=== PATIENT | female | born 1965 | race Caucasian/White ===

== ENCOUNTER 2016-11-05 18:19 | Emergency (ER) | payer OTHER ==
[~2016-11-05] VITALS: Ht 147.3 cm; Wt 75.5 kg
[~2016-11-05 18:19] MED LIST: DENIES
[2016-11-05 18:24] VITALS: Ht 147.3 cm; Wt 75.5 kg
[2016-11-05] MEDS ORDERED: ACETAMINOPHEN 500 MG TAB PO STA (19:12)
[2016-11-05 19:24] LABS: URINE BLOOD (Dip) POC Trace-intact (NEGATIVE)
--- NOTE | 2016-11-05 19:58 | ERD ---
ER Documentation Chief Complaint Date/Time DATE: 11/05/16 TIME: 19:56 Chief Complaint GRIMALDO/ n/v x 2 days, pain in L 4th finger r/t previous fall x 5 days HPI Patient is a 51-year-old female who presents the ED with left finger and wrist pain, right knee pain after sustaining a following week ago. She states that she tripped and fell forward. She denies hitting her head, blacking out or losing consciousness. She states that she went to another ER 1 week ago and was given Augmentin, ibuprofen and [place]. She states that she has been taking [place] every day for the last week. However she states that she has had headaches every single day for the last week. She has a history of migraines but states that this headache is different than before. She also complains of nausea and vomiting that started today. She denies fever or chills. She denies abdominal pain, constipation or diarrhea. She denies chest pain, cough, shortness of breath or difficulty breathing. Denies leg pain or swelling or recent travel or recent surgeries. ROS All systems reviewed and are negative except as per history of present illness. Medications Home Meds Active Scripts Ondansetron Hcl* (Zofran*) 4 Mg Tablet, 4 MG PO Q6H for NAUSEA AND/OR VOMITING, #30 TAB Prov:NATHALY GUERRERO PA-C 11/05/16 Reported Medications [Denies] No Conflict Check 02/10/10 Allergies Allergies: Coded Allergies: No Known Allergies (Verified Allergy, Mild, 02/10/10) PMhx/Soc Medical and Surgical Hx: pt denies Medical Hx History of Surgery: Yes (gb and c section) Anesthesia Reaction: No Hx Neurological Disorder: No Hx Respiratory Disorders: No Hx Cardiac Disorders: No Hx Psychiatric Problems: No Hx Miscellaneous Medical Probl: No Hx Alcohol Use: No Hx Substance Use: No Hx Tobacco Use: No FmHx Family History: No coronary disease, No diabetes, No other Physical Exam Vitals Vital Signs Date Time Temp Pulse Resp B/P Pulse Ox O2 Delivery O2 Flow Rate FiO2 11/05/16 22:08 98.0 11/05/16 18:24 102.5 82 19 133/72 98 Physical Exam GENERAL: Well-developed, well-nourished female. Appears in no acute distress. HEAD: Normocephalic, atraumatic. EYES: Pupils are equally reactive bilaterally. EOMs grossly intact. No conjunctival erythema. ENT: Moist mucous membranes. No uvula deviation. No kissing tonsils. No exudates. NECK: Supple. No lymphadenopathy or thyromegaly. No meningismus. negative kernig. negative brudinski. LUNG: Clear to auscultation bilaterally. No rhonchi, wheezing, rales or coarse breath sounds. HEART: Regular rate and rhythm. No murmurs, rubs or gallops. Extremities: Equal pulses bilaterally. No peripheral clubbing, cyanosis or edema. No unilateral leg swelling. NEUROLOGIC: Alert and oriented. Moving all four extremities. 5/5 strength in all extremities. Normal speech. Steady gait. Cranial nerves II through XII intact SKIN: Normal color. Warm and dry. No rashes or lesions. Capillary refill < 2 seconds Results 24 hrs Laboratory Tests Test 11/05/16 19:25 Bedside Urine Blood Trace-intact Bedside Urine Glucose (UA) Negative Bedside Urine Ketones (LAB) Negative Bedside Urine Leukocyte Esterase (L Negative Bedside Urine Nitrite (LAB) Negative Bedside Urine Protein (LAB) Negative Bedside Urine pH (LAB) 5.5 Current Medications Medications (Trade) Dose Ordered Sig/Paige Route PRN Reason Start Time Stop Time Status Last Admin Dose Admin Acetaminophen (Tylenol Tab) 1,000 mg ONCE STAT PO 11/05/16 19:12 11/05/16 19:13 11/05/16 19:23 Procedures/MDM ER COURSE: I kept the patient and/or family informed of laboratory and diagnostic imaging results throughout the emergency room course. EKG, MONITORS, & DIAGNOSTIC IMAGING: [place] [id number] Radiology Main Line: [phone] DIAGNOSTIC IMAGING REPORT Patient: GONSALO LOGAN : 1965 Age: 51 Sex: F MR #: [id number] DOS: 11/05/161911 Ordering MD: NATHALY GUERRERO PA-C Location: [facility] Room/Bed: PROCEDURE: CT Head without. CLINICAL INDICATION: Headache, dizziness. TECHNIQUE: The study was performed utilizing a multi-slice, multidetector CT scanner. Direct spiral 1 mm axial sections were obtained through the head without the use of intravenous contrast material. Coronal and sagittal reformations were obtained. The images were reviewed on a PACS workstation. RADIATION DOSE: CTDIvol: 44.0 mGy DLP: 720.2 mGy-cm COMPARISON: No prior studies are available for comparison. FINDINGS: There is no intracranial hemorrhage, extra-axial fluid collection, mass lesion, midline shift or hydrocephalus. The ventricles, sulci and cisterns are within normal limits. The white matter is unremarkable. The mcginnis-white matter differentiation is preserved. The basal cisterns are patent. The midline structures are intact. The orbits, calvarium and extracranial soft tissues are normal in appearance. The visualized paranasal sinuses, mastoid air cells and middle ear cavities are normally aerated. IMPRESSION: 1. No acute intracranial abnormality. No intracranial hemorrhage, extra-axial fluid collection, mass lesion or hydrocephalous. RPTAT: HGAS .Gianfranco Martinez MD, MD Date Time Electronically viewed and signed by .Gianfranco Martinez MD, MD on 11/05/2016 20: 59 .S/ CC: NATHALY GUERRERO PA-C PROCEDURES: ED wrist splint, finger splint and marifer tape, right knee Ramírez wrap. Splint Assessment: Neurovascularly intact post splint placement with good fit. MEDICATIONS: Tylenol 1 g. Tolerated medication well with no adverse reaction. Seen improvement in symptoms. Temperature is down trending LAB INTERPRETATION: Urine test was negative. MEDICAL DECISION MAKING: This is a 51-year-old female who presents with headache, nausea, vomiting and left wrist and finger and right knee pain. Vital signs were reviewed. Patient had a low-grade fever here in the ED. After administration of Tylenol, temperature is down trending and is now 98. Patient is not hypoxic. Patient is not toxic or ill-appearing. Her bone x-rays as read by radiologist were unremarkable. Patient likely has a wrist sprain and a finger sprain as well as knee pain of uncertain etiology. This is all likely related to her fall. Low suspicion for dislocation, fracture, septic joint, compartment syndrome, osteomyelitis, cellulitis, avascular necrosis, neurological injury, vascular injury, tendon laceration. Her headache is of uncertain etiology. Since this was a different type of headache and she had accompanying nausea and vomiting a CT scan was ordered a CT scan was ordered and was unremarkable as read by radiologist. Low suspicion for intracranial hemorrhage, meningitis, intracranial mass, concussion, temporal arteritis, stroke, elevated intracranial pressure, seizure. Patient also has likely a URI of viral etiology. Low suspicion for pneumonia, PE, pneumothorax, ACS, epiglottitis, obstruction, TB, pertussis, meningitis, sepsis. DISCHARGE: At this time, patient is stable for discharge and outpatient management with no new complaints during the ER course. Patient was sent home with Zofran for nausea. Patient will be discharged home with instructions to recheck for new or worsening symptoms such as fever, nausea, weakness, LOC and to follow up with primary care in the next 1-2 days. Patient was advised to return to the ER for any new or worsening symptoms. Plan was discussed and patient and/or family understands and agrees. Home instructions were given. Departure Diagnosis: Primary Impression: Finger sprain Encounter type: initial encounter Qualified Code: S63.619A - Finger sprain, initial encounter Additional Impressions: URI, acute Wrist sprain Encounter type: sequela Laterality: left Qualified Code: S63.502S - Wrist sprain, left, sequela Condition: Stable NATHALY GUERRERO PA-C Nov 05, 2016 19:58
--- NOTE | 2016-11-05 21:00 | RADRPT ---
PROCEDURE: CT Head without. CLINICAL INDICATION: Headache, dizziness. TECHNIQUE: The study was performed utilizing a multi-slice, multidetector CT scanner. Direct spira l 1 mm axial sections were obtained through the head without the use of intravenous contrast materia l. Coronal and sagittal reformations were obtained. The images were reviewed on a PACS workstation. RADIATION DOSE: CTDIvol: 44.0 mGyDLP: 720.2 mGy-cm COMPARISON: No prior studies are available for comparison. FINDINGS: There is no intracranial hemorrhage, extra-axial fluid collection, mass lesion, midline shift or hyd rocephalus. The ventricles, sulci and cisterns are within normal limits. The white matter is unrem arkable. The mcginnis-white matter differentiation is preserved. The basal cisterns are patent. The m idline structures are intact. The orbits, calvarium and extracranial soft tissues are normal in mora earance. The visualized paranasal sinuses, mastoid air cells and middle ear cavities are normally ae rated. IMPRESSION: 1. No acute intracranial abnormality. No intracranial hemorrhage, extra-axial fluid collection, ma ss lesion or hydrocephalous. RPTAT: HGAS .Gianfranco Martinez MD, Date Time Electronically viewed and signed by .Gianfranco Martinez MD, on 11/05/2016 20:59 .S/
--- NOTE | 2016-11-05 21:29 | RADRPT ---
PROCEDURE: XR hand. CLINICAL INDICATION: Trauma TECHNIQUE: AP, lateral views of the left hand was obtained. COMPARISON: There are no similar studies submitted for comparison. FINDINGS: There is normal bone mineralization. There is no acute fracture or dislocation. No osseous erosions are identified. The joint spaces are within normal limits. There is no soft tissue swelling. IMPRESSION: No acute fracture or dislocation. RPTAT: HIKT .Magdy Vital MD, MD Date Time Electronically viewed and signed by .Magdy Vital MD, MD on 11/05/2016 21:29 .T/
--- NOTE | 2016-11-05 21:36 | RADRPT ---
PROCEDURE: XR Left Wrist. CLINICAL INDICATION: Pain TECHNIQUE: Four AP, lateral and oblique views of the left wrist were performed. COMPARISON: No prior studies are available for comparison. FINDINGS: No acute fracture is identified. Joint relationships are maintained. Bone mineralization is within normal limits. Soft tissues are unremarkable. IMPRESSION: 1. No acute abnormality. RPTAT: HMVK .Floerntino Stevens MD, Date Time Electronically viewed and signed by .Florentino Stevens MD, on 11/05/2016 21:36 .K/
--- NOTE | 2016-11-05 21:39 | RADRPT ---
PROCEDURE: XR Knee. CLINICAL INDICATION: Pain TECHNIQUE: Three views of the right knee are available for review. COMPARISON: None available FINDINGS: There is no fracture. Joint relationships are maintained. Bone mineralization is within normal guerra its. Soft tissues are unremarkable. IMPRESSION: 1. Unremarkable right knee x-ray series. 2. No acute fracture or dislocation is seen. RPTAT: HMVK .Florentino Stevens MD, Date Time Electronically viewed and signed by .Florentino Stevens MD, on 11/05/2016 21:39 .K/
[2016-11-05] MEDS ORDERED: ONDA4TAB8 PO (21:51)
[2016-11-05 22:08] VITALS: TEMP 98
== END 2016-11-05 22:35 | disposition home or self-care (01) ==
LOC: FTE 18:19
DX: S63.619A Unspecified sprain of unspecified finger, initial encounter (principal); J06.9 Acute upper respiratory infection, unspecified; S63.502S Unspecified sprain of left wrist, sequela; R11.2 Nausea with vomiting, unspecified; R51 Headache; W01.0XXA Fall on same level from slipping, tripping and stumbling without subsequent striking against object, initial encounter; Y92.9 Unspecified place or not applicable
CPT/HCPCS: 29125; 70450; 73110; 73130; 73562; 81003; Z7502; Z7610

== ENCOUNTER 2017-01-25 19:13 | Emergency (ER) | payer OTHER ==
[~2017-01-25] VITALS: Ht 157.5 cm; Wt 75.0 kg
[~2017-01-25 19:13] MED LIST changes: +ONDA4TAB8 PO
[2017-01-25 19:23] VITALS: Ht 157.5 cm; Wt 75.0 kg
[2017-01-25] MEDS ORDERED: NAPROXEN 500 MG TAB PO ONE (22:00)
--- NOTE | 2017-01-25 22:22 | ERD ---
ER Documentation Chief Complaint Date/Time DATE: 01/25/17 TIME: 22:16 Chief Complaint sp trip and fall, right ankle pain/ swelling HPI This pleasant 51-year-old female presents to emergency department today for mechanical trip and fall yesterday. Patient reports she was walking on uneven pavement and tripped in a shallow concrete hole. Patient reports that she rolled her right ankle. Obtain no other injuries, denies hitting her head, loss of consciousness, hitting her back or knee or her shoulder. Patient reports she treated herself at home with Motrin and ice, reports pain is still 8 /10 with ambulating, she has increased swelling, denies numbness or tingling to her feet. ROS All systems reviewed and are negative except as per history of present illness. Medications Home Meds Active Scripts Ibuprofen* (Motrin*) 400 Mg Tab, 400 MG PO Q6, #30 TAB Prov:ALDOALEX 01/25/17 Ondansetron Hcl* (Zofran*) 4 Mg Tablet, 4 MG PO Q6H for NAUSEA AND/OR VOMITING, #30 TAB Prov:NATHALY GUERRERO PA-C 11/05/16 Reported Medications [Denies] No Conflict Check 02/10/10 Allergies Allergies: Coded Allergies: No Known Allergies (Verified Allergy, Mild, 01/25/17) PMhx/Soc History of Surgery: Yes (gb and c section) Anesthesia Reaction: No Hx Neurological Disorder: No Hx Respiratory Disorders: No Hx Cardiac Disorders: No Hx Psychiatric Problems: No Hx Miscellaneous Medical Probl: No Hx Alcohol Use: No Hx Substance Use: No Hx Tobacco Use: No Smoking Status: Never smoker Physical Exam Vitals Vitals stable, and triage notes reviewed Physical Exam Const: No acute distress Head: Atraumatic Eyes: Normal Conjunctiva, PERRLA, EOMI ENT: Normal External Ears, Nose and Mouth. Mucous membranes moist Neck: Full range of motion. With rotation lateral bending flexion and extension Resp: No chest wall tenderness Cardio: Abd: Skin: Back: Ext: Lower Extremity -right ankle: Skin: No laceration Compartments: Soft, localized edema lateral malleolus Motor: Decreased range of motion of ankle, full range of motion of the foot, knee, hip. Sensation: Intact to light touch anterior posterior and lateral surfaces. Bones: Tender to palpation lateral malleolus Joints: No effusion or laxity Pulses/Perfusion: 2+ DP, Capillary refill < 2 seconds Neur: Awake and alert Psych: Normal Mood and Affect Results 24 hrs Current Medications Medications (Trade) Dose Ordered Sig/Paige Route PRN Reason Start Time Stop Time Status Last Admin Dose Admin Naproxen (Naprosyn) 500 mg ONCE ONCE PO 01/25/17 22:00 01/25/17 22:01 DC 01/25/17 22:00 Ibuprofen (Motrin) 400 mg ONCE ONCE PO 01/26/17 00:00 01/26/17 00:14 DC Procedures/MDM ROCEDURE: XR Right Ankle. CLINICAL INDICATION: Injury. Pain. TECHNIQUE: Three views of the right ankle were performed. COMPARISON: None. FINDINGS: There is lateral malleolar subcutaneous soft tissue swelling. There is no underlying fracture. Joint relationships are maintained. Ankle mortise is intact. Bone mineralization is within normal limits. IMPRESSION: Lateral malleolar subcutaneous soft tissue swelling without underlying fracture. .Florentino Stevens MD, MD Date Time Electronically viewed and signed by .Florentino Stevens MD, MD on 01/25/2017 23:15 This pleasant 51-year-old female presents to emergency department with 1 day history of ankle pain after injury. Patient had mechanical trip and fall on pavement yesterday treated conservatively ice and Motrin. Patient continues to have pain with ambulation and swelling. Low suspicion for fracture x-ray was obtained regardless. Findings present as lateral malleolar subcutaneous soft tissue swelling there is no underlying fracture. Joint relationships are maintained. Ankle mortise that is intact. Bone mineralization is within normal limits. Patient will be discharged with a Ramírez wrap, Motrin, instructed to continue rice therapy, return to emergency department for worsening pain, swelling, numbness or tingling to foot. I feel the patient is stable for discharge and outpatient management by primary care physician I have discussed results, examination findings, the treatment plan with the patient and family present prior to discharge. Indications for emergent reevaluation, side effects of medication were also discussed. All questions were answered. Patient verbalizes understanding and agrees with plan of care. Departure Diagnosis: Primary Impression: Ankle sprain Encounter type: initial encounter Involved ligament of ankle: unspecified ligament Laterality: right Qualified Code: S93.401A - Sprain of right ankle , unspecified ligament, initial encounter Condition: Fair Patient Instructions: Self-Care for Strains and Sprains Additional Instructions: Thank you for for coming to [facility] for your care today. Please ask your nurse or provider if you have questions about your care today and do not leave until all your questions have been answered. Please use any medications given as directed and follow-up with your doctor (or the doctor you were referred to) in the next 2-3 days. If you do not have a primary care doctor you may [place] [facility] [place]). You may also use motrin and tylenol as needed for fever and/or pain unless instructed otherwise by your provider or nurse. Indications for more urgent follow-up have been discussed, but you may return to the Emergency Department at ANY time for any worrisome or worsening symptoms. If you have abdominal pain, please know that no test or exam you received is perfect and you should follow up within 8 hours for continued pain. If you had any imaging studies today, such as an X-Ray or CT Scan, these studies will be reviewed later by a radiologist. You will be called if there are important findings that were not identified today, so make sure the contact information you provided at registration is correct. If you received any narcotic pain control medicine today, such as Vicodin, Morphine or Dilaudid, your coordination and judgment may be affected for a number of hours. Please do not drive or operate heavy machinery, and you may want someone to assist you at home. If you were given a prescription for narcotic medication, be aware that it is very addictive- use sparingly and only if necessary. ALEX CARLSON January 25, 2017 22:22 ALEX CARLSON January 25, 2017 22:22
--- NOTE | 2017-01-25 23:16 | RADRPT ---
PROCEDURE: XR Right Ankle. CLINICAL INDICATION: Injury. Pain. TECHNIQUE: Three views of the right ankle were performed. COMPARISON: None. FINDINGS: There is lateral malleolar subcutaneous soft tissue swelling. There is no underlying fracture. Miriam nt relationships are maintained. Ankle mortise is intact. Bone mineralization is within normal guerra its. IMPRESSION: Lateral malleolar subcutaneous soft tissue swelling without underlying fracture. RPTAT: HMVK .Folrentino Stevens MD, MD Date Time Electronically viewed and signed by .Florentino Stevens MD, on 01/25/2017 23:15 .K/
[2017-01-25] MEDS ORDERED: IBUP400T22 PO (23:47)
[2017-01-26] MEDS ORDERED: IBUPROFEN 200 MG TAB PO ONE
== END 2017-01-26 00:23 | disposition home or self-care (01) ==
LOC: FTE 19:13
DX: S93.401A Sprain of unspecified ligament of right ankle, initial encounter (principal); W01.0XXA Fall on same level from slipping, tripping and stumbling without subsequent striking against object, initial encounter; Y92.9 Unspecified place or not applicable
CPT/HCPCS: 73610; Z7610

== ENCOUNTER 2017-07-24 15:20 | Emergency (ER) | payer OTHER ==
[~2017-07-24] VITALS: Ht 157.5 cm; Wt 76.0 kg
[~2017-07-24 15:20] MED LIST changes: +IBUP400T22 PO
[2017-07-24 15:27] VITALS: Ht 157.5 cm; Wt 76.0 kg
[2017-07-24] MEDS ORDERED: ONDANSETRON 4 MG INJ IV STA (16:42)
[2017-07-24] MEDS ORDERED: FAMOTIDINE 20 MG INJ IV STA (16:42)
[2017-07-24] MEDS ORDERED: ACETAMINOPHEN 325 MG TAB PO ONE (17:00)
[2017-07-24] MEDS ORDERED: KETOROLAC 30 MG INJ IV STA (18:31)
[2017-07-24] MEDS ORDERED: RANI150T9 PO (19:14)
[2017-07-24] MEDS ORDERED: ONDA4TAB14 PO (19:14)
[2017-07-24] MEDS ORDERED: ACET500C5 PO (19:14)
[2017-07-24 19:33] VITALS: BP 112/68; PULSE 88; RESP 16; TEMP 98.9
--- NOTE | 2017-07-25 00:31 | ERD ---
ER Documentation Chief Complaint Chief Complaint vomiting and diarrhea x 3 days HPI 52-year-old female patient with no significant past medical history presents to the ED complaining of abdominal pain that started last night. Patient had a few episodes of nonbilious nonbloody vomiting as well as headache. States that she also has a few episodes of non-mucoid nonbloody diarrhea. Denies any chest pain, shortness of breath, fever, chills, constipation, vaginal discharge, dysuria, urgency, vaginal bleeding, melena, hematemesis, or other emergent conditions. ROS All systems reviewed and are negative except as per history of present illness. Medications Home Meds Active Scripts Acetaminophen* (Tylophen*) 500 Mg Capsule, 1 CAP PO Q6H Y for PAIN AND OR ELEVATED TEMP, #20 CAP Prov:NHI HENRIQUEZ PA-C 07/24/17 Ranitidine Hcl* (Zantac*) 150 Mg Tablet, 150 MG PO BID Y for EPIGASTRIC PAIN, # 30 TAB Prov:NHI HENRIQUEZ PA-C 07/24/17 Ondansetron (Ondansetron Odt) 4 Mg Tab.rapdis, 4 MG PO Q6H Y for NAUSEA AND/OR VOMITING, #10 TAB Prov:NHI HENRIQUEZ PA-C 07/24/17 Ibuprofen* (Motrin*) 400 Mg Tab, 400 MG PO Q6, #30 TAB Prov:ALDOSHEREENALEX 01/25/17 Ondansetron Hcl* (Zofran*) 4 Mg Tablet, 4 MG PO Q6H for NAUSEA AND/OR VOMITING, #30 TAB Prov:NATHALY GUERRERO PA-C 11/05/16 Reported Medications [Denies] No Conflict Check 02/10/10 Allergies Allergies: Coded Allergies: No Known Allergies (Verified Allergy, Mild, 01/25/17) PMhx/Soc History of Surgery: Yes (gb and c section) Anesthesia Reaction: No Hx Neurological Disorder: No Hx Respiratory Disorders: No Hx Cardiac Disorders: No Hx Psychiatric Problems: No Hx Miscellaneous Medical Probl: No Hx Alcohol Use: No Hx Substance Use: No Hx Tobacco Use: No Smoking Status: Never smoker Physical Exam Vitals Vital Signs Date Time Temp Pulse Resp B/P Pulse Ox O2 Delivery O2 Flow Rate FiO2 07/24/17 19:33 98.9 88 16 112/68 98 Room Air 07/24/17 15:27 99.4 92 16 130/68 98 Physical Exam Const: [id number], well-nourished. In no acute distress. Head: Atraumatic, normocephalic Eyes: Normal Conjunctiva without injection. No purulent discharge. PERRLA. EOMI ENT: Normal external ear. Ear canal without erythema. Tympanic membrane pearly mcginnis without effusion or bulging. Nasal canal clear with normal turbinates. Moist oropharynx without tonsillar exudates. Non-erythematous pharynx. Uvula midline. No drooling. No trismus. Neck: No cervical midline tenderness. Full range of motion. No meningismus. No cervical lymphadenopathy. No JVD. Resp: Clear to auscultation bilaterally. No wheezing, rhonchi, rales, or crackles. No accessory muscle use. No retractions. Cardio: Regular rate and rhythm. No murmurs, rubs or gallops. Abd: Soft, slight epigastric tenderness to palpation, non distended. Normal bowel sounds. No palpable masses. No rebound tenderness. No guarding. Negative McBurney's Point. Negative Hannon's Sign. Skin: Normal skin turgor. No petechiae or rashes Back: No midline tenderness. No CVA tenderness. Ext: No cyanosis, or edema. Distal pulses intact bilaterally. Neur: Awake and alert. Normal gait. Normal coordination. Cranial Nerves II- VII intact. Normal finger to nose. Muscle strength 5/5. Sensation intact. Psych: Normal Mood and Affect Results 24 hrs Laboratory Tests Test 07/24/17 17:00 White Blood Count 6.810^3/ul Red Blood Count 4.7310^6/ul Hemoglobin 14.5g/dl Hematocrit 42.6% Mean Corpuscular Volume 90.1fl Mean Corpuscular Hemoglobin 30.7pg Mean Corpuscular Hemoglobin Concent 34.0g/dl Red Cell Distribution Width 13.7% Platelet Count 29640^3/UL Mean Platelet Volume 10.2fl Neutrophils % 76.6% Lymphocytes % 12.6% Monocytes % 9.3% Eosinophils % 0.9% Basophils % 0.3% Nucleated Red Blood Cells % 0.0/100WBC Neutrophils # 5.210^3/ul Lymphocytes # 0.910^3/ul Monocytes # 0.610^3/ul Eosinophils # 0.110^3/ul Basophils # 0.010^3/ul Nucleated Red Blood Cells # 0.010^3/ul Sodium Level 139mmol/L Potassium Level 3.4mmol/L Chloride Level 101mmol/L Carbon Dioxide Level 24mmol/L Anion Gap 17 Blood Urea Nitrogen 17mg/dl Creatinine 0.80mg/dl Glucose Level 119mg/dl Calcium Level 9.1mg/dl Total Bilirubin 0.4mg/dl Direct Bilirubin 0.00mg/dl Indirect Bilirubin 0.4mg/dl Aspartate Amino Transf (AST/SGOT) 37IU/L Alanine Aminotransferase (ALT/SGPT) 54IU/L Alkaline Phosphatase 86IU/L Total Protein 7.8g/dl Albumin 4.9g/dl Globulin 2.90g/dl Albumin/Globulin Ratio 1.68 Lipase 26U/L Current Medications Medications (Trade) Dose Ordered Sig/Paige Route PRN Reason Start Time Stop Time Status Last Admin Dose Admin Ondansetron HCl (Zofran Inj) 4 mg ONCE STAT IV 07/24/17 16:42 07/24/17 16:43 DC 07/24/17 17:39 Famotidine (Pepcid Iv) 20 mg ONCE STAT IV 07/24/17 16:42 07/24/17 16:43 DC 07/24/17 17:39 Acetaminophen (Tylenol Tab) 650 mg ONCE ONCE PO 07/24/17 17:00 07/24/17 17:01 DC 07/24/17 17:39 Ketorolac Tromethamine (Toradol) 30 mg ONCE STAT IV 07/24/17 18:31 07/24/17 18:32 DC 07/24/17 18:47 Procedures/MDM This is a 52-year-old female patient with no significant past medical history presents to the ED nausea, vomiting, diarrhea, abdominal pain. Patient is afebrile and nontoxic-appearing. Patient was further worked up with CBC, CMP, lipase, UA. Patient's pain and symptoms have improved after treatment with 20 mg IV famotidine, Tylenol, Ketorolac. CBC: No leukocytosis. No e/o of systemic infection. No e/o anemia. CMP: No e/o severe acidosis, alkalosis, renal failure, diabetic ketoacidosis, liver disease Lipase within normal limits. Urine: No leukocyte esterase, no nitrites, no hematuria. Urine : negative Patient's symptoms are likely secondary to viral etiology. Low suspicion for ectopic , ovarian torsion, gastritis, GERD, peptic ulcer disease, cholecystitis, choledocholithiasis, cholangitis, pancreatitis, appendicitis, bowel obstruction, ileus, volvulus, nephrolithiasis, pyelonephritis, hepatitis, perforated viscus, diverticulitis, strangulated/incarcerated hernia, DKA, acute abdomen, mesenteric ischemia or other emergent conditions. Discharge medications: Ranitidine, Zofran, Tylenol Follow up with primary care physician in 1-2 days for referral to senior devops engineer. Instructed patient to return to the ED sooner for any worsening symptoms. Patient's questions were answered. Patient understood and agreed with discharge plan. Patient discharged stable. Departure Diagnosis: Primary Impression: Vomiting and diarrhea Condition: Stable Patient Instructions: Self-Care for Vomiting and Diarrhea, Vomiting And Diarrhea, Nonspecific (Adult) Referrals: [facility] YOU HAVE RECEIVED A MEDICAL SCREENING EXAM AND THE RESULTS INDICATE THAT YOU DO NOT HAVE A CONDITION THAT REQUIRES URGENT TREATMENT IN THE EMERGENCY DEPARTMENT. FURTHER EVALUATION AND TREATMENT OF YOUR CONDITION CAN WAIT UNTIL YOU ARE SEEN IN YOUR DOCTORS OFFICE WITHIN THE NEXT 1-2 DAYS. IT IS YOUR RESPONSIBILITY TO MAKE AN APPOINTMENT FOR FOLOW-UP CARE. IF YOU HAVE A PRIMARY DOCTOR --you should call your primary doctor and schedule an appointment IF YOU DO NOT HAVE A PRIMARY DOCTOR YOU CAN CALL OUR PHYSICIAN REFERRAL HOTLINE AT IF YOU CAN NOT AFFORD TO SEE A PHYSICIAN YOU CAN CHOSE FROM THE FOLLOWING [facility] CLINICS [facility] [address] [facility] [address] [facility] [place] [address] [facility] [facility] [address] [facility] [address] [facility]. [facility]. [address] [facility]. [facility] YOU HAVE RECEIVED A MEDICAL SCREENING EXAM AND THE RESULTS INDICATE THAT YOU DO NOT HAVE A CONDITION THAT REQUIRES URGENT TREATMENT IN THE EMERGENCY DEPARTMENT. FURTHER EVALUATION AND TREATMENT OF YOUR CONDITION CAN WAIT UNTIL YOU ARE SEEN IN YOUR DOCTORS OFFICE WITHIN THE NEXT 1-2 DAYS. IT IS YOUR RESPONSIBILITY TO MAKE AN APPOINTMENT FOR FOLOW-UP CARE. IF YOU HAVE A PRIMARY DOCTOR --you should call your primary doctor and schedule and appointment IF YOU DO NOT HAVE A PRIMARY DOCTOR YOU CAN CALL OUR PHYSICIAN REFERRAL HOTLINE AT . IF YOU CAN NOT AFFORD TO SEE A PHYSICIAN YOU CAN CHOSE FROM THE FOLLOWING [facility] INSTITUTIONS: [facility] [address] [place] [address] [facility] [address] [place] [address] [facility] [address] [place] [address] [facility] URGENT CARE/SPECIALTIES Additional Instructions: Call your primary care doctor TOMORROW for an appointment during the next 2-3 days.See the doctor sooner or return here if your condition worsens before your appointment time. NHI HENRIQUEZ PA-C Jul 25, 2017 00:28 NHI HENRIQUEZ PA-C Jul 25, 2017 00:28
--- NOTE | 2017-07-25 00:31 | ERD ---
ER Documentation Chief Complaint Chief Complaint vomiting and diarrhea x 3 days HPI 52-year-old female patient with no significant past medical history presents to the ED complaining of abdominal pain that started last night. Patient had a few episodes of nonbilious nonbloody vomiting as well as headache. States that she also has a few episodes of non-mucoid nonbloody diarrhea. Denies any chest pain, shortness of breath, fever, chills, constipation, vaginal discharge, dysuria, urgency, vaginal bleeding, melena, hematemesis, or other emergent conditions. ROS All systems reviewed and are negative except as per history of present illness. Medications Home Meds Active Scripts Acetaminophen* (Tylophen*) 500 Mg Capsule, 1 CAP PO Q6H Y for PAIN AND OR ELEVATED TEMP, #20 CAP Prov:NHI HENRIQUEZ PA-C 07/24/17 Ranitidine Hcl* (Zantac*) 150 Mg Tablet, 150 MG PO BID Y for EPIGASTRIC PAIN, # 30 TAB Prov:NHI HENRIQUEZ PA-C 07/24/17 Ondansetron (Ondansetron Odt) 4 Mg Tab.rapdis, 4 MG PO Q6H Y for NAUSEA AND/OR VOMITING, #10 TAB Prov:NHI HENRIQUEZ PA-C 07/24/17 Ibuprofen* (Motrin*) 400 Mg Tab, 400 MG PO Q6, #30 TAB Prov:ALDOSHEREENALEX 01/25/17 Ondansetron Hcl* (Zofran*) 4 Mg Tablet, 4 MG PO Q6H for NAUSEA AND/OR VOMITING, #30 TAB Prov:NATHALY GUERRERO PA-C 11/05/16 Reported Medications [Denies] No Conflict Check 02/10/10 Allergies Allergies: Coded Allergies: No Known Allergies (Verified Allergy, Mild, 01/25/17) PMhx/Soc History of Surgery: Yes (gb and c section) Anesthesia Reaction: No Hx Neurological Disorder: No Hx Respiratory Disorders: No Hx Cardiac Disorders: No Hx Psychiatric Problems: No Hx Miscellaneous Medical Probl: No Hx Alcohol Use: No Hx Substance Use: No Hx Tobacco Use: No Smoking Status: Never smoker Physical Exam Vitals Vital Signs Date Time Temp Pulse Resp B/P Pulse Ox O2 Delivery O2 Flow Rate FiO2 07/24/17 19:33 98.9 88 16 112/68 98 Room Air 07/24/17 15:27 99.4 92 16 130/68 98 Physical Exam Const: [id number], well-nourished. In no acute distress. Head: Atraumatic, normocephalic Eyes: Normal Conjunctiva without injection. No purulent discharge. PERRLA. EOMI ENT: Normal external ear. Ear canal without erythema. Tympanic membrane pearly mcginnis without effusion or bulging. Nasal canal clear with normal turbinates. Moist oropharynx without tonsillar exudates. Non-erythematous pharynx. Uvula midline. No drooling. No trismus. Neck: No cervical midline tenderness. Full range of motion. No meningismus. No cervical lymphadenopathy. No JVD. Resp: Clear to auscultation bilaterally. No wheezing, rhonchi, rales, or crackles. No accessory muscle use. No retractions. Cardio: Regular rate and rhythm. No murmurs, rubs or gallops. Abd: Soft, slight epigastric tenderness to palpation, non distended. Normal bowel sounds. No palpable masses. No rebound tenderness. No guarding. Negative McBurney's Point. Negative Hannon's Sign. Skin: Normal skin turgor. No petechiae or rashes Back: No midline tenderness. No CVA tenderness. Ext: No cyanosis, or edema. Distal pulses intact bilaterally. Neur: Awake and alert. Normal gait. Normal coordination. Cranial Nerves II- VII intact. Normal finger to nose. Muscle strength 5/5. Sensation intact. Psych: Normal Mood and Affect Results 24 hrs Laboratory Tests Test 07/24/17 17:00 White Blood Count 6.810^3/ul Red Blood Count 4.7310^6/ul Hemoglobin 14.5g/dl Hematocrit 42.6% Mean Corpuscular Volume 90.1fl Mean Corpuscular Hemoglobin 30.7pg Mean Corpuscular Hemoglobin Concent 34.0g/dl Red Cell Distribution Width 13.7% Platelet Count 56199^3/UL Mean Platelet Volume 10.2fl Neutrophils % 76.6% Lymphocytes % 12.6% Monocytes % 9.3% Eosinophils % 0.9% Basophils % 0.3% Nucleated Red Blood Cells % 0.0/100WBC Neutrophils # 5.210^3/ul Lymphocytes # 0.910^3/ul Monocytes # 0.610^3/ul Eosinophils # 0.110^3/ul Basophils # 0.010^3/ul Nucleated Red Blood Cells # 0.010^3/ul Sodium Level 139mmol/L Potassium Level 3.4mmol/L Chloride Level 101mmol/L Carbon Dioxide Level 24mmol/L Anion Gap 17 Blood Urea Nitrogen 17mg/dl Creatinine 0.80mg/dl Glucose Level 119mg/dl Calcium Level 9.1mg/dl Total Bilirubin 0.4mg/dl Direct Bilirubin 0.00mg/dl Indirect Bilirubin 0.4mg/dl Aspartate Amino Transf (AST/SGOT) 37IU/L Alanine Aminotransferase (ALT/SGPT) 54IU/L Alkaline Phosphatase 86IU/L Total Protein 7.8g/dl Albumin 4.9g/dl Globulin 2.90g/dl Albumin/Globulin Ratio 1.68 Lipase 26U/L Current Medications Medications (Trade) Dose Ordered Sig/Paige Route PRN Reason Start Time Stop Time Status Last Admin Dose Admin Ondansetron HCl (Zofran Inj) 4 mg ONCE STAT IV 07/24/17 16:42 07/24/17 16:43 DC 07/24/17 17:39 Famotidine (Pepcid Iv) 20 mg ONCE STAT IV 07/24/17 16:42 07/24/17 16:43 DC 07/24/17 17:39 Acetaminophen (Tylenol Tab) 650 mg ONCE ONCE PO 07/24/17 17:00 07/24/17 17:01 DC 07/24/17 17:39 Ketorolac Tromethamine (Toradol) 30 mg ONCE STAT IV 07/24/17 18:31 07/24/17 18:32 DC 07/24/17 18:47 Procedures/MDM This is a 52-year-old female patient with no significant past medical history presents to the ED nausea, vomiting, diarrhea, abdominal pain. Patient is afebrile and nontoxic-appearing. Patient was further worked up with CBC, CMP, lipase, UA. Patient's pain and symptoms have improved after treatment with 20 mg IV famotidine, Tylenol, Ketorolac. CBC: No leukocytosis. No e/o of systemic infection. No e/o anemia. CMP: No e/o severe acidosis, alkalosis, renal failure, diabetic ketoacidosis, liver disease Lipase within normal limits. Urine: No leukocyte esterase, no nitrites, no hematuria. Urine : negative Patient's symptoms are likely secondary to viral etiology. Low suspicion for ectopic , ovarian torsion, gastritis, GERD, peptic ulcer disease, cholecystitis, choledocholithiasis, cholangitis, pancreatitis, appendicitis, bowel obstruction, ileus, volvulus, nephrolithiasis, pyelonephritis, hepatitis, perforated viscus, diverticulitis, strangulated/incarcerated hernia, DKA, acute abdomen, mesenteric ischemia or other emergent conditions. Discharge medications: Ranitidine, Zofran, Tylenol Follow up with primary care physician in 1-2 days for referral to bailer operators supervisor. Instructed patient to return to the ED sooner for any worsening symptoms. Patient's questions were answered. Patient understood and agreed with discharge plan. Patient discharged stable. Departure Diagnosis: Primary Impression: Vomiting and diarrhea Condition: Stable Patient Instructions: Self-Care for Vomiting and Diarrhea, Vomiting And Diarrhea, Nonspecific (Adult) Referrals: [facility] YOU HAVE RECEIVED A MEDICAL SCREENING EXAM AND THE RESULTS INDICATE THAT YOU DO NOT HAVE A CONDITION THAT REQUIRES URGENT TREATMENT IN THE EMERGENCY DEPARTMENT. FURTHER EVALUATION AND TREATMENT OF YOUR CONDITION CAN WAIT UNTIL YOU ARE SEEN IN YOUR DOCTORS OFFICE WITHIN THE NEXT 1-2 DAYS. IT IS YOUR RESPONSIBILITY TO MAKE AN APPOINTMENT FOR FOLOW-UP CARE. IF YOU HAVE A PRIMARY DOCTOR --you should call your primary doctor and schedule an appointment IF YOU DO NOT HAVE A PRIMARY DOCTOR YOU CAN CALL OUR PHYSICIAN REFERRAL HOTLINE AT IF YOU CAN NOT AFFORD TO SEE A PHYSICIAN YOU CAN CHOSE FROM THE FOLLOWING [facility] CLINICS [facility] [address] [facility] [address] [facility]. [facility] [address] [facility] [address] [facility] [address] [facility]. [facility]. [address] [facility]. [facility] YOU HAVE RECEIVED A MEDICAL SCREENING EXAM AND THE RESULTS INDICATE THAT YOU DO NOT HAVE A CONDITION THAT REQUIRES URGENT TREATMENT IN THE EMERGENCY DEPARTMENT. FURTHER EVALUATION AND TREATMENT OF YOUR CONDITION CAN WAIT UNTIL YOU ARE SEEN IN YOUR DOCTORS OFFICE WITHIN THE NEXT 1-2 DAYS. IT IS YOUR RESPONSIBILITY TO MAKE AN APPOINTMENT FOR FOLOW-UP CARE. IF YOU HAVE A PRIMARY DOCTOR --you should call your primary doctor and schedule and appointment IF YOU DO NOT HAVE A PRIMARY DOCTOR YOU CAN CALL OUR PHYSICIAN REFERRAL HOTLINE AT . IF YOU CAN NOT AFFORD TO SEE A PHYSICIAN YOU CAN CHOSE FROM THE FOLLOWING [facility] INSTITUTIONS: [facility] [address] [place] [address] [facility] [address] [place] [address] [facility] [address] [place] [address] [facility] URGENT CARE/SPECIALTIES Additional Instructions: Call your primary care doctor TOMORROW for an appointment during the next 2-3 days.See the doctor sooner or return here if your condition worsens before your appointment time. NHI HENRIQUEZ PA-C Jul 25, 2017 00:28 NHI HENRIQUEZ PA-C Jul 25, 2017 00:28
--- NOTE | 2017-07-25 00:31 | ERD ---
ER Documentation Chief Complaint Chief Complaint vomiting and diarrhea x 3 days HPI 52-year-old female patient with no significant past medical history presents to the ED complaining of abdominal pain that started last night. Patient had a few episodes of nonbilious nonbloody vomiting as well as headache. States that she also has a few episodes of non-mucoid nonbloody diarrhea. Denies any chest pain, shortness of breath, fever, chills, constipation, vaginal discharge, dysuria, urgency, vaginal bleeding, melena, hematemesis, or other emergent conditions. ROS All systems reviewed and are negative except as per history of present illness. Medications Home Meds Active Scripts Acetaminophen* (Tylophen*) 500 Mg Capsule, 1 CAP PO Q6H Y for PAIN AND OR ELEVATED TEMP, #20 CAP Prov:NHI HENRIQUEZ PA-C 07/24/17 Ranitidine Hcl* (Zantac*) 150 Mg Tablet, 150 MG PO BID Y for EPIGASTRIC PAIN, # 30 TAB Prov:NHI HENRIQUEZ PA-C 07/24/17 Ondansetron (Ondansetron Odt) 4 Mg Tab.rapdis, 4 MG PO Q6H Y for NAUSEA AND/OR VOMITING, #10 TAB Prov:NHI HENRIQUEZ PA-C 07/24/17 Ibuprofen* (Motrin*) 400 Mg Tab, 400 MG PO Q6, #30 TAB Prov:ALDOSHEREENALEX 01/25/17 Ondansetron Hcl* (Zofran*) 4 Mg Tablet, 4 MG PO Q6H for NAUSEA AND/OR VOMITING, #30 TAB Prov:NATHALY GUERRERO PA-C 11/05/16 Reported Medications [Denies] No Conflict Check 02/10/10 Allergies Allergies: Coded Allergies: No Known Allergies (Verified Allergy, Mild, 01/25/17) PMhx/Soc History of Surgery: Yes (gb and c section) Anesthesia Reaction: No Hx Neurological Disorder: No Hx Respiratory Disorders: No Hx Cardiac Disorders: No Hx Psychiatric Problems: No Hx Miscellaneous Medical Probl: No Hx Alcohol Use: No Hx Substance Use: No Hx Tobacco Use: No Smoking Status: Never smoker Physical Exam Vitals Vital Signs Date Time Temp Pulse Resp B/P Pulse Ox O2 Delivery O2 Flow Rate FiO2 07/24/17 19:33 98.9 88 16 112/68 98 Room Air 07/24/17 15:27 99.4 92 16 130/68 98 Physical Exam Const: [id number], well-nourished. In no acute distress. Head: Atraumatic, normocephalic Eyes: Normal Conjunctiva without injection. No purulent discharge. PERRLA. EOMI ENT: Normal external ear. Ear canal without erythema. Tympanic membrane pearly mcginnis without effusion or bulging. Nasal canal clear with normal turbinates. Moist oropharynx without tonsillar exudates. Non-erythematous pharynx. Uvula midline. No drooling. No trismus. Neck: No cervical midline tenderness. Full range of motion. No meningismus. No cervical lymphadenopathy. No JVD. Resp: Clear to auscultation bilaterally. No wheezing, rhonchi, rales, or crackles. No accessory muscle use. No retractions. Cardio: Regular rate and rhythm. No murmurs, rubs or gallops. Abd: Soft, slight epigastric tenderness to palpation, non distended. Normal bowel sounds. No palpable masses. No rebound tenderness. No guarding. Negative McBurney's Point. Negative Hannon's Sign. Skin: Normal skin turgor. No petechiae or rashes Back: No midline tenderness. No CVA tenderness. Ext: No cyanosis, or edema. Distal pulses intact bilaterally. Neur: Awake and alert. Normal gait. Normal coordination. Cranial Nerves II- VII intact. Normal finger to nose. Muscle strength 5/5. Sensation intact. Psych: Normal Mood and Affect Results 24 hrs Laboratory Tests Test 07/24/17 17:00 White Blood Count 6.810^3/ul Red Blood Count 4.7310^6/ul Hemoglobin 14.5g/dl Hematocrit 42.6% Mean Corpuscular Volume 90.1fl Mean Corpuscular Hemoglobin 30.7pg Mean Corpuscular Hemoglobin Concent 34.0g/dl Red Cell Distribution Width 13.7% Platelet Count 35293^3/UL Mean Platelet Volume 10.2fl Neutrophils % 76.6% Lymphocytes % 12.6% Monocytes % 9.3% Eosinophils % 0.9% Basophils % 0.3% Nucleated Red Blood Cells % 0.0/100WBC Neutrophils # 5.210^3/ul Lymphocytes # 0.910^3/ul Monocytes # 0.610^3/ul Eosinophils # 0.110^3/ul Basophils # 0.010^3/ul Nucleated Red Blood Cells # 0.010^3/ul Sodium Level 139mmol/L Potassium Level 3.4mmol/L Chloride Level 101mmol/L Carbon Dioxide Level 24mmol/L Anion Gap 17 Blood Urea Nitrogen 17mg/dl Creatinine 0.80mg/dl Glucose Level 119mg/dl Calcium Level 9.1mg/dl Total Bilirubin 0.4mg/dl Direct Bilirubin 0.00mg/dl Indirect Bilirubin 0.4mg/dl Aspartate Amino Transf (AST/SGOT) 37IU/L Alanine Aminotransferase (ALT/SGPT) 54IU/L Alkaline Phosphatase 86IU/L Total Protein 7.8g/dl Albumin 4.9g/dl Globulin 2.90g/dl Albumin/Globulin Ratio 1.68 Lipase 26U/L Current Medications Medications (Trade) Dose Ordered Sig/Paige Route PRN Reason Start Time Stop Time Status Last Admin Dose Admin Ondansetron HCl (Zofran Inj) 4 mg ONCE STAT IV 07/24/17 16:42 07/24/17 16:43 DC 07/24/17 17:39 Famotidine (Pepcid Iv) 20 mg ONCE STAT IV 07/24/17 16:42 07/24/17 16:43 DC 07/24/17 17:39 Acetaminophen (Tylenol Tab) 650 mg ONCE ONCE PO 07/24/17 17:00 07/24/17 17:01 DC 07/24/17 17:39 Ketorolac Tromethamine (Toradol) 30 mg ONCE STAT IV 07/24/17 18:31 07/24/17 18:32 DC 07/24/17 18:47 Procedures/MDM This is a 52-year-old female patient with no significant past medical history presents to the ED nausea, vomiting, diarrhea, abdominal pain. Patient is afebrile and nontoxic-appearing. Patient was further worked up with CBC, CMP, lipase, UA. Patient's pain and symptoms have improved after treatment with 20 mg IV famotidine, Tylenol, Ketorolac. CBC: No leukocytosis. No e/o of systemic infection. No e/o anemia. CMP: No e/o severe acidosis, alkalosis, renal failure, diabetic ketoacidosis, liver disease Lipase within normal limits. Urine: No leukocyte esterase, no nitrites, no hematuria. Urine : negative Patient's symptoms are likely secondary to viral etiology. Low suspicion for ectopic , ovarian torsion, gastritis, GERD, peptic ulcer disease, cholecystitis, choledocholithiasis, cholangitis, pancreatitis, appendicitis, bowel obstruction, ileus, volvulus, nephrolithiasis, pyelonephritis, hepatitis, perforated viscus, diverticulitis, strangulated/incarcerated hernia, DKA, acute abdomen, mesenteric ischemia or other emergent conditions. 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 Instructed patient to return to the ED sooner for any worsening symptoms. Patient's questions were answered. Patient understood and agreed with discharge plan. Patient discharged stable. Departure Diagnosis: Primary Impression: Vomiting and diarrhea Condition: Stable Patient Instructions: Self-Care for Vomiting and Diarrhea, Vomiting And Diarrhea, Nonspecific (Adult) Referrals: [facility] YOU HAVE RECEIVED A MEDICAL SCREENING EXAM AND THE RESULTS INDICATE THAT YOU DO NOT HAVE A CONDITION THAT REQUIRES URGENT TREATMENT IN THE EMERGENCY DEPARTMENT. FURTHER EVALUATION AND TREATMENT OF YOUR CONDITION CAN WAIT UNTIL YOU ARE SEEN IN YOUR DOCTORS OFFICE WITHIN THE NEXT 1-2 DAYS. IT IS YOUR RESPONSIBILITY TO MAKE AN APPOINTMENT FOR FOLOW-UP CARE. IF YOU HAVE A PRIMARY DOCTOR --you should call your primary doctor and schedule an appointment IF YOU DO NOT HAVE A PRIMARY DOCTOR YOU CAN CALL OUR PHYSICIAN REFERRAL HOTLINE AT IF YOU CAN NOT AFFORD TO SEE A PHYSICIAN YOU CAN CHOSE FROM THE FOLLOWING [facility] [address] [facility] [address] [email or web address] [address] [facility] [facility] [address] [facility] [address] [facility]. [facility]. [address] [facility]. [facility] YOU HAVE RECEIVED A MEDICAL SCREENING EXAM AND THE RESULTS INDICATE THAT YOU DO NOT HAVE A CONDITION THAT REQUIRES URGENT TREATMENT IN THE EMERGENCY DEPARTMENT. FURTHER EVALUATION AND TREATMENT OF YOUR CONDITION CAN WAIT UNTIL YOU ARE SEEN IN YOUR DOCTORS OFFICE WITHIN THE NEXT 1-2 DAYS. IT IS YOUR RESPONSIBILITY TO MAKE AN APPOINTMENT FOR FOLOW-UP CARE. IF YOU HAVE A PRIMARY DOCTOR --you should call your primary doctor and schedule and appointment IF YOU DO NOT HAVE A PRIMARY DOCTOR YOU CAN CALL OUR PHYSICIAN REFERRAL HOTLINE AT . IF YOU CAN NOT AFFORD TO SEE A PHYSICIAN YOU CAN CHOSE FROM THE FOLLOWING [facility] INSTITUTIONS: [facility] [address] [place] [address] [facility] [address] [place] [address] [facility] [address] [place] [address] [facility] Additional Instructions: Call your primary care doctor TOMORROW for an appointment during the next 2-3 days.See the doctor sooner or return here if your condition worsens before your appointment time. NHI HENRIQUEZ PA-C Jul 25, 2017 00:28 NHI HENRIQUEZ PA-C Jul 25, 2017 00:28
== END 2017-07-24 19:34 | disposition home or self-care (01) ==
LOC: FTE 15:20
DX: R11.10 Vomiting, unspecified (principal); R19.7 Diarrhea, unspecified
CPT/HCPCS: 36415; 80053; 83690; 85025; 96374; 96375; J1885; J2405; Z7502; Z7610

== ENCOUNTER 2017-11-25 13:32 | Emergency (ER) | END 2017-11-25 17:56 | disposition home or self-care (01) ==